=== PATIENT | female | born 1965 | race Caucasian/White ===

== ENCOUNTER → 2019-10-18 16:06 | Outpatient (CLI) | payer OTHER, SELFPAY ==
--- NOTE | 2019-10-18 | DI.MRI.S_ITS ---
PROCEDURE: MR ANKLE LT WO CON INDICATIONS: LATERAL LEFT ANKLE PAIN TECHNIQUE: Noncontrast sagittal T1 spin echo and T2 fast spin echo with fat saturation, axial proton density fast spin echo and T2 fast spin echo with fat saturation, coronal T1 spin echo and T2 fast spin echo with fat saturation through the ankle/hindfoot. COMPARISON: None. FINDINGS: Image quality: Excellent. Bones and joints: No bone marrow contusions or fractures. No hindfoot coalitions. No osteochondral injuries of the talar dome. Small amount of fluid within tibiotalar joint and subtalar joint is seen. Medial structures: The posterior tibialis, flexor digitorum longus, and flexor hallucis longus tendons are intact. The posterior tibial neurovascular bundle appears normal within the tarsal tunnel, without extrinsic mass effect. The deep layer (anterior and posterior tibiotalar ligaments) and superficial layer (tibionavicular, tibiospring, and tibiocalcaneal ligaments) of the deltoid ligament appear normal. The spring ligament components (superomedial calcaneonavicular, medioplantar oblique calcaneonavicular, and inferoplantar longitudinal ligaments) are intact. Lateral structures: The anterior talofibular, calcaneofibular, and posterior talofibular ligaments appear mildly thickened with intrasubstance fluid signal suggestive of low-grade sprain/partial thickness tear. More superiorly, the anterior and posterior tibiofibular ligaments appear intact, as is the intermalleolar ligament. The tibiofibular syndesmosis is normal in width at 2 mm or less. The peroneus longus and brevis tendons are mildly thickened at the level of lateral malleolus and calcaneus suggestive of low-grade tendinosis. No evidence of peroneus tendon tear. Adjacent bony peroneal tubercle and retrotrochlear prominence are normal in size. The sinus tarsi demonstrates normal fatty signal, without edema, fibrosis, or cyst formation. Visualized sinus tarsi components (cervical ligament, interosseous talocalcaneal ligament, roots of the inferior extensor retinaculum) appear normal. The calcaneonavicular and calcaneocuboid components of the bifurcate ligament appear intact. The dorsal calcaneocuboid ligament appears intact. Anterior structures: The tibialis anterior, extensor hallucis longus, and extensor digitorum longus tendons appear intact. The dorsal talonavicular ligament appears intact. Posterior and plantar structures: Achilles tendon is intact. Medial and lateral bands of the plantar fascia are of normal thickness. No abductor digiti quinti muscle atrophy to suggest Panchal neuropathy. IMPRESSION: 1. Tendinosis involving peroneus tendons at the level of lateral malleolus and calcaneus. Rest of the ankle tendons are intact. 2. Low-grade lateral ankle ligament sprain/partial thickness tear. No full-thickness lateral ankle ligament rupture. Medial ankle ligaments are intact. 3. No marrow edema. No fracture or dislocation. Dictated by: Cleveland Harris M.D. on 10/18/2019 at 17:59 Approved by: Cleveland Harris M.D. on 10/18/2019 at 18:08
== END ==
PROVIDERS: Referring Provider Orthopaedic Surgery Foot and Ankle Surgery; Visit Provider Orthopaedic Surgery Foot and Ankle Surgery
DX: M67.88 Other specified disorders of synovium and tendon, other site (principal); S93.492A Sprain of other ligament of left ankle, initial encounter
CPT/HCPCS: 73721

== ENCOUNTER → 2019-11-01 13:09 | Outpatient (CLI) | payer OTHER, SELFPAY ==
--- NOTE | 2019-11-01 | DI.US.S_ITS ---
LIMITED ULTRASOUND OF RIGHT BREAST: 11/01/2019 CLINICAL: Patient returns today to evaluate a density in the right breast. Comparison is made to exams dated: 10/04/2019 mammogram, 02/13/2017 mammogram, and 11/08/2015 mammogram - [facility]. Real-time ultrasound of the right breast 2-5 o'clock region was performed. Beltran scale images of the real-time examination were reviewed. No significant abnormalities were seen sonographically in the right breast. Specifically, no finding to correspond to the patient's screening mammogram abnormality. IMPRESSION: NEGATIVE There is no sonographic or mammographic evidence of malignancy. Return to annual mammogram screening schedule is recommended. Findings and recommendations were conveyed to the patient at time of exam. This exam was interpreted at Station ID: [id number]. Electronically Signed By: Kassie uribe/:11/01/2019 15:39:20 letter sent: Normal Exam Ultrasound BI-RADS: 1 Negative
--- NOTE | 2019-11-01 | DI.MG.S_ITS ---
UNILATERAL RIGHT DIGITAL DIAGNOSTIC MAMMOGRAM 3D/2D WITH ADDITIONAL VIEWS: 11/01/2019 CLINICAL: Patient returns today to evaluate a density in the right breast. Comparison is made to exams dated: 10/04/2019 mammogram, 02/13/2017 mammogram, and 11/08/2015 mammogram - [facility]. The tissue of right breast is predominantly fatty. Prior 5 mm round asymmetry is no longer seen in the right breast in the medial aspect. There is a vessel with a genu in this area seen only on CC projection tomosynthesis images. No significant masses, calcifications, or other findings are seen in the breast. IMPRESSION: INCOMPLETE: NEEDS ADDITIONAL IMAGING EVALUATION Resolution of screening mammography abnormality with additional views. Ultrasound evaluation to confirm resolution is recommended and was performed immediately following this exam. This exam was interpreted at Station ID: [id number]. NOTE: For mammograms, a report in lay terms will be sent to the patient. Approximately 15% of breast malignancies will not be visualized mammographically. In the management of a palpable breast mass, a negative mammogram must not discourage biopsy of a clinically suspicious lesion. Electronically Signed By: Kassie uribe/:11/01/2019 15:35:51 ACR BI-RADS Category 0: Incomplete 3340F
== END ==
DX: R92.8 Other abnormal and inconclusive findings on diagnostic imaging of breast (principal)
CPT/HCPCS: 76642; 77065; G0279

== ENCOUNTER → 2021-11-07 15:03 | Outpatient (CLI) | payer OTHER, SELFPAY ==
--- NOTE | 2021-11-07 | DI.MG.S_ITS ---
BILATERAL DIGITAL SCREENING MAMMOGRAM 3D/2D WITH CAD: 11/07/2021 CLINICAL: Routine screening. Comparison is made to exams dated: 11/01/2019 ultrasound, 11/01/2019 mammogram - [facility], 10/04/2019 mammogram, and 02/13/2017 mammogram - [facility]. The tissue of both breasts is predominantly fatty. Current study was also evaluated with a Computer Aided Detection (CAD) system. No significant masses, calcifications, or other findings are seen in either breast. There has been no significant interval change. IMPRESSION: NEGATIVE There is no mammographic evidence of malignancy. A 1 year screening mammogram is recommended. This exam was interpreted at Station ID: [id number]. NOTE: For mammograms, a report in lay terms will be sent to the patient. Approximately 15% of breast malignancies will not be visualized mammographically. In the management of a palpable breast mass, a negative mammogram must not discourage biopsy of a clinically suspicious lesion. Electronically Signed By: Moses Licea acr/sarahrad:11/08/2021 09:00:07 letter sent: Normal Exam ACR BI-RADS Category 1: Negative 3341F
== END ==
PROVIDERS: PCP Student in an Organized Health Care Education/Training Program; Referring Provider Student in an Organized Health Care Education/Training Program; Visit Provider Student in an Organized Health Care Education/Training Program
DX: Z12.31 Encounter for screening mammogram for malignant neoplasm of breast (principal)
CPT/HCPCS: 77063; 77067

== ENCOUNTER → 2023-02-09 14:09 | Outpatient (CLI) | payer OTHER, SELFPAY ==
--- NOTE | 2023-02-09 | DI.MG.S_ITS ---
BILATERAL DIGITAL SCREENING MAMMOGRAM 3D/2D WITH CAD: 02/09/2023 CLINICAL: Routine screening. Comparison is made to exams dated: 11/07/2021 mammogram - [facility] and 10/04/2019 mammogram - [facility]. Both breasts are almost entirely fatty (category a/<25% glandular tissue). Current study was also evaluated with a Computer Aided Detection (CAD) system. No significant masses, calcifications, or other findings are seen in either breast. There has been no significant interval change. IMPRESSION: NEGATIVE There is no mammographic evidence of malignancy. A 1 year screening mammogram is recommended. Based on the Tyrer Cuzick model (a risk assessment model) the patient's lifetime risk is 7.2% and her 10 year risk is 2.3%. According to the ACR, ACS, and NCCN guidelines, an annual breast MRI exam along with mammogram is recommended if the patient's lifetime risk is 20% or greater. This exam was interpreted at Station ID: [id number]. NOTE: For mammograms, a report in lay terms will be sent to the patient. Approximately 15% of breast malignancies will not be visualized mammographically. In the management of a palpable breast mass, a negative mammogram must not discourage biopsy of a clinically suspicious lesion. Electronically Signed By: Matthew jin/mercy:02/09/2023 15:09:42 letter sent: Normal Exam ACR BI-RADS Category 1: Negative 3341F
== END ==
PROVIDERS: PCP Student in an Organized Health Care Education/Training Program; Referring Provider Student in an Organized Health Care Education/Training Program; Visit Provider Student in an Organized Health Care Education/Training Program
DX: Z12.31 Encounter for screening mammogram for malignant neoplasm of breast (principal)
CPT/HCPCS: 77063; 77067

== ENCOUNTER → 2024-04-19 14:31 | Outpatient (CLI) | payer OTHER, SELFPAY ==
--- NOTE | 2024-04-19 14:33 | DI.MG.S_ITS ---
BILATERAL DIGITAL SCREENING MAMMOGRAM 3D/2D WITH CAD: 04/19/2024 CLINICAL: Routine screening. Comparison is made to exams dated: 02/09/2023 mammogram, 11/07/2021 mammogram - [facility], and 10/04/2019 mammogram - [facility]. There are scattered areas of fibroglandular density in both breasts (category b / 25%-50% glandular tissue). Current study was also evaluated with a Computer Aided Detection (CAD) system. No significant masses, calcifications, or other findings are seen in either breast. There has been no significant interval change. IMPRESSION: NEGATIVE There is no mammographic evidence of malignancy. A 1 year screening mammogram is recommended. Based on the Tyrer Cuzick model (a risk assessment model) the patient's lifetime risk is 10.6% and her 10 year risk is 3.7%. According to the ACR, ACS, and NCCN guidelines, an annual breast MRI exam along with mammogram is recommended if the patient's lifetime risk is 20% or greater. This exam was interpreted at Station ID: [id number]. NOTE: For mammograms, a report in lay terms will be sent to the patient. Approximately 15% of breast malignancies will not be visualized mammographically. In the management of a palpable breast mass, a negative mammogram must not discourage biopsy of a clinically suspicious lesion. Electronically Signed By: Matthew jin/mercy:04/19/2024 16:06:49 letter sent: Normal Exam ACR BI-RADS Category 1: Negative 3341F
== END ==
LOC: MAMMO 14:32
PROVIDERS: PCP Family Medicine; Referring Provider Family Medicine; Visit Provider Family Medicine
DX: Z12.31 Encounter for screening mammogram for malignant neoplasm of breast (principal); R92.323 Mammographic fibroglandular density, bilateral breasts
CPT/HCPCS: 77063; 77067

== ENCOUNTER → 2025-03-21 10:04 | Outpatient (CLI) | payer OTHER, SELFPAY ==
[2025-03-21 10:34] LABS: Hematocrit 33.6 % (36-46); Hemoglobin 11.5 g/dL (12.0-16.0); Mean Corpuscular HGB Conc 34.2 % (30-36); Mean Corpuscular Hemoglobin 30.8 PG (26-34); Mean Corpuscular Volume 90.2 fL (80-100); Platelet Count 235 X10^3/uL (150-400)
[2025-03-21 11:00] LABS: Alanine Aminotransferase 20 IU/L (<35); Albumin 4.5 g/dL (3.5-5.0); Albumin Globulin Ratio 1.9 (1.0-2.8); Alkaline Phosphatase 91 U/L (38-126); Blood Urea Nitrogen 17 mg/dL (7-17); Calcium 10.5 mg/dL (8.4-10.2); Carbon Dioxide 26 mmol/L (22-32); Chloride 108 mmol/L (98-107); Cholesterol 198 mg/dL (140-199); Estimated Glomerular Filt Rate > 60 mL/min (>60); Globulin 2.4 g/dL (1.7-4.1); Glucose 88 mg/dL (70-99); HDL Cholesterol 96 mg/dL (40-60); HEMOLYSIS < 15 (0-50); Potassium 4.4 mmol/L (3.4-5.1); Sodium 140 mmol/L (137-145); Total Protein 6.9 g/dL (6.3-8.2); Triglycerides 84 mg/dL (35-150)
[2025-03-21 11:13] LABS: Free T3, Triiodothyronine Free 2.51 pg/mL (2.77-5.27); Free T4, Direct Thyroxine 0.50 ng/dL (0.78-2.19)
[2025-03-21 11:40] LABS: Thyroid Stimulating Hormone < 0.015 uIU/mL (0.47-4.68)
[2025-03-21 11:46] LABS: Vitamin B12 712 pg/mL (239-931)
[2025-03-21 12:30] LABS: Microalbumi Creatinin Ratio Ur 7.0 ug/mg CR (<30)
[2025-03-21 15:34] LABS: Hep C Virus Ab w/Reflex Quant NEGATIVE s/c (NEGATIVE)
== END ==
PROVIDERS: PCP Family Medicine; Referring Provider Family Medicine; Visit Provider Family Medicine
DX: I10 Essential (primary) hypertension (principal); E78.5 Hyperlipidemia, unspecified; E03.9 Hypothyroidism, unspecified
CPT/HCPCS: 36415; 80053; 80061; 82043; 82570; 82607; 84439; 84443; 84481; 85027; 86803

== ENCOUNTER → 2025-05-08 12:53 | Outpatient (CLI) | payer OTHER, SELFPAY ==
--- NOTE | 2025-05-08 12:57 | DI.MRI.S_ITS ---
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 Thin-slice sagittal and coronal T1 spin echo, coronal T2 fast spin echo through the pituitary. After the administration contrast, optional dynamic coronal T1 spin echo, thin-slice coronal and sagittal T1 spin echo images through the pituitary fossa; axial and coronal and sagittal T1 spin echo with fat saturation through the brain. COMPARISON: None. FINDINGS: Image quality: Excellent. Pituitary Gland: The pituitary gland demonstrates normal signal and bulk. On the postcontrast imaging, no masses or abnormally enhancing areas are seen. The pituitary stalk and infundibulum have an unremarkable appearance. A normal appearing pituitary bright spot is seen posteriorly on the precontrast sagittal T1-weighted images. The optic chiasm and the ventral forebrain have an unremarkable appearance. CSF Spaces: Ventricles are normal in size and shape. Basal cisterns are patent. No extra-axial fluid collections. Brain: No intracranial bleeds or mass effects. No abnormal intracranial enhancement. Beltran-white matter interface is intact. Diffusion weighted images demonstrate no acute ischemic insults. Brainstem is normal. Normal intravascular flow voids are present. Skull and face: Calvarial marrow is normal in signal. Orbits appear normal. Sinuses: Sinuses and mastoids are clear. IMPRESSION: Normal pituitary, without masses or abnormal enhancement seen. Dictated by: Eliud Ribeiro M.D. on 05/08/2025 at 14:28 Approved by: Eliud Ribeiro M.D. on 05/08/2025 at 14:29
[2025-05-08 13:53] LABS: Cholesterol 174 mg/dL (140-199); HDL Cholesterol 99 mg/dL (40-60); Magnesium 2.0 mg/dL (1.6-2.3); Triglycerides 71 mg/dL (35-150)
[2025-05-08 14:12] LABS: Free T3, Triiodothyronine Free 7.26 pg/mL (2.77-5.27); Free T4, Direct Thyroxine 0.84 ng/dL (0.78-2.19)
[2025-05-08 14:27] LABS: Thyroid Stimulating Hormone < 0.015 uIU/mL (0.47-4.68)
[2025-05-08 15:04] LABS: Follicle Stimulating Hormone 106 mIU/mL
== END ==
PROVIDERS: PCP Family Medicine; Referring Provider Family Medicine; Visit Provider Family Medicine
DX: E03.9 Hypothyroidism, unspecified (principal); R79.89 Other specified abnormal findings of blood chemistry; I10 Essential (primary) hypertension; M79.10 Myalgia, unspecified site
CPT/HCPCS: 36415; 70553; 80061; 83001; 83002; 83735; 84146; 84439; 84443; 84481; A9579